=== PATIENT | male | born 1980 | race Caucasian/White ===

== ENCOUNTER 2016-06-28 02:31 | Emergency (ER) | payer OTHER ==
[2016-06-28] MEDS ORDERED: ONDANSETRON 4 MG ODT TAB ONE (03:25)
[2016-06-28] MEDS ORDERED: OXYCODONE/ACETAMINOPHEN 5/325 MG TABLET ONE (03:25)
[2016-06-28] MEDS ORDERED: IBUPROFEN 600 MG TABLET ONE (04:30)
[2016-06-28] MEDS ORDERED: CEPHALEXIN 500 MG CAPSULE ONE (04:30)
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
== END 2016-06-28 05:28 | disposition home or self-care (01) ==
LOC: ED 02:31
DX: S02.82XA Fracture of other specified skull and facial bones, left side, initial encounter for closed fracture (principal); H53.8 Other visual disturbances; M50.31 Other cervical disc degeneration, high cervical region; F17.210 Nicotine dependence, cigarettes, uncomplicated; Y04.2XXA Assault by strike against or bumped into by another person, initial encounter; Y92.29 Other specified public building as the place of occurrence of the external cause
CPT/HCPCS: 72125; 70450; 70486; 99284 ×2; A9270 ×4